=== PATIENT | female | born 1975 | race Caucasian/White ===

== ENCOUNTER → 2018-07-05 | Outpatient (CLI) | payer OTHER, MEDICARE ==
[~2018-07-05] MED LIST: BUPR150T15 PO; CLON0.5T11 PO; DULO20CA PO; FENT1PAT93 TP; GABA-585 PO; OXYM5TAB PO; PREG50CA PO; PROAIR HFA8.5 GM INH; SUMA25TA3 PO; TIZA2CAP3 PO
[2018-07-05 16:51] LABS: BASO # 0.1 x10^3/uL (0.0-0.2); BASO % 1 % (0-3); EOS # 0.3 x10^3/uL (0.0-0.7); EOS % 4 % (0-3); HEMATOCRIT 39.9 % (36.0-47.0); HEMOGLOBIN 13.5 g/dL (12.0-15.5); LYMPH # 1.7 x10^3/uL (1.0-4.8); LYMPH % 25 % (24-48); MEAN CORPUSCULAR HEMOGLOBIN 31 pg (25-35); MEAN CORPUSCULAR HGB CONC 34 g/dL (31-37); MEAN CORPUSCULAR VOLUME 93 fL (79-100); MONO # 0.7 x10^3/uL (0.0-1.1); MONO % 10 % (0-9); NEUT # 4.3 x10^3uL (1.8-7.7); NEUT % 61 % (31-73); PLATELET COUNT 285 x10^3/uL (140-400)
[2018-07-05 17:06] LABS: AMPHETAMINE/METHAMPHETAMINE POS (NEG); BARBITURATES NEG (NEG); BENZODIAZEPINES NEG (NEG); CANNABINOIDS NEG (NEG); COCAINE NEG (NEG); METHADONE NEG (NEG); OPIATES POS (NEG); PHENCYCLIDINE NEG (NEG)
[2018-07-05 17:28] LABS: ALBUMIN 3.3 g/dL (3.4-5.0); ALBUMIN/GLOBULIN RATIO 0.9 (1.0-1.7); CALCIUM 8.9 mg/dL (8.5-10.1); TOTAL BILIRUBIN 0.3 mg/dL (0.2-1.0)
[2018-07-06 08:29] LABS: CALCIUM PTH 9.1 mg/dL (8.7-10.2); CREATININE PTH 0.74 mg/dL (0.57-1.00); PHOSPHORUS PTH 2.6 mg/dL (2.5-4.5); PTH INTACT 61 pg/mL (15-65)
== END | disposition home or self-care (01) ==
LOC: LAB 16:13
PROVIDERS: ATTEND Psychiatry & Neurology Neurology
DX: G25.9 Extrapyramidal and movement disorder, unspecified (principal); G25.89 Other specified extrapyramidal and movement disorders
CPT/HCPCS: 36415; 80053; 80307; 82310; 82525; 82550; 83970; 84443; 85025; 85651

== ENCOUNTER → 2018-07-20 | Outpatient (CLI) | payer OTHER, MEDICARE ==
[~2018-07-20] MED LIST changes: +ALBU2.5V8 INH; -PROAIR HFA8.5 GM INH
--- NOTE | 2018-07-24 20:04 | EEG ---
DATE OF SERVICE: 07/20/2018 ELECTROENCEPHALOGRAM NUMBER: [id number]. OBJECTIVE: This is a 43-year-old female patient with history of abnormal movements. EEG was requested to help to rule out seizure. METHODS: Twenty electrodes were applied according to the international 10-20 electrode placement system. EKG monitoring, hyperventilation, intermittent photic stimulation, monopolar and bipolar montages are routinely utilized. The record was obtained on a digital system with video monitoring. FINDINGS: 1. Background: The patient was recorded in the awake, drowsy and sleep states. The overall background amplitude is 5-15 microvolts. A posterior dominant rhythm of 8 Hz is observed. 2. Abnormalities: No specific epileptiform discharge or electrographic seizure is seen. No focal or diffuse slowing. 3. Activation: Hyperventilation was performed with fair efforts and normal response. Intermittent photic stimulation was performed with photic driving. No specific epileptiform discharge or electrographic seizure induced by hyperventilation or intermittent photic stimulation. Photo paroxysmal response noted. IMPRESSION: This electroencephalogram is a borderline study for the awake, drowsy and sleep states. Photo paroxysmal response noted. No focal, lateralizing, specific epileptiform discharge or electrographic seizure is seen. LEA WANG MD DR: JOSE CARLOS/janee JOB#: [id number] / [id number] MARCIAL
== END | disposition home or self-care (01) ==
LOC: RT 10:53
PROVIDERS: ATTEND Psychiatry & Neurology Neurology
DX: G25.9 Extrapyramidal and movement disorder, unspecified (principal)
CPT/HCPCS: 95816